=== PATIENT | female | born 1975 | race Caucasian/White ===

== ENCOUNTER 2017-03-10 11:22 | Emergency (ER) | payer OTHER ==
[2017-03-10 11:29] VITALS: TEMP 97.7
[2017-03-10] MEDS ORDERED: NS 1,000 ML IV ONE (12:02)
[2017-03-10] MEDS ORDERED: ONDANSETRON 4 MG/2 ML VIAL IVP ONE ×2 (12:02→12:52)
[2017-03-10 12:16] LABS: PLATELET COUNT 289 10^3/uL (150-400)
[2017-03-10] MEDS ORDERED: HYDROmorphONE/DILAUDID 1 MG/ML INJ IVP ONE (12:52)
[2017-03-10] MEDS ORDERED: KETOROLAC 30 MG/1 ML SDV IVP ONE (14:20)
[2017-03-10] MEDS ORDERED: DEXAMETHASONE 10 MG/ML VIAL IVP ONE (14:20)
[2017-03-10] MEDS ORDERED: METOCLOPRAMIDE 10 MG/2 ML VIAL IVP ONE (14:20)
[2017-03-10] MEDS ORDERED: PROMETHAZINE HCL 25 MG/ML INJ ONE (14:25)
[2017-03-10] MEDS ORDERED: PROMETHAZINE HCL 25 MG/ML INJ IVP ONE (14:27)
--- NOTE | 2017-03-10 15:42 | EDPHY ---
H & P Time Seen by Provider: 03/10/17 11:55 HPI/ROS: CHIEF COMPLAINT: Nausea, headache HISTORY OF PRESENT ILLNESS: 41-year-old female presents to the emergency department with ongoing headache over last 2 weeks. The patient states that she had platelet rich plasma, PRP, done by Dr. Bell in [place] on 2016. The patient was doing well until a few days later when she developed headache. Also was feeling delusional and nauseous. She had no vomiting. No neck pain. She has felt intermittently dizzy as well. She denies chest pain or difficulty breathing. She was concerned about a possible "dural leak". Denies any other reported trauma. No visual changes. No urinary symptoms. She states today she was at work and she felt that the pain in her head became too great and came to the emergency department for evaluation. REVIEW OF SYSTEMS: Constitutional: No fever, no chills. Eyes: No double or blurry vision. ENT: No sore throat. Respiratory: No cough, no shortness of breath. Cardiac: No chest pain. Gastrointestinal: Nausea. No abdominal pain, vomiting or diarrhea. Genitourinary: No dysuria. Musculoskeletal: No neck or back pain. Skin: No rashes. Neurological: headache. 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 Afebrile, nontoxic-appearing. Eyes: Pupils equal and round. Extraocular motions are all intact. ENT: Mouth: Mucous membranes moist. Respiratory: No wheezing, rhonchi, or rales, lungs are clear to auscultation. Cardiovascular: Regular rate and rhythm. Gastrointestinal: Abdomen is soft and nontender, no masses, no rebound or guarding, bowel sounds normal. Neurological: Alert and oriented x 3, cranial nerves II through XII grossly intact Skin: Warm and dry, no rashes. Musculoskeletal: Nontender to palpate along the cervical, thoracic or lumbar spine. Neck is supple. No nuchal rigidity. No pain with range of motion of her neck at all. Extremities: Full range of motion and no peripheral edema. Psychiatric: Patient is oriented X 3, there is no agitation. Constitutional: Initial Vital Signs Temperature (C) 36.5 C 03/10/17 11:26 Heart Rate 77 03/10/17 11:26 Respiratory Rate 16 03/10/17 11:26 Blood Pressure 110/59 L 03/10/17 11:26 O2 Sat (%) 98 03/10/17 11:26 O2 Delivery Mode Room Air Allergies/Adverse Reactions: No Known Allergies Allergy (Verified 03/10/17 11:29) Home Medications: Medication Instructions Recorded oxyCODONE/APAP 5/325 [Percocet 1 tab PO 07/12/14 5/325] Meclizine HCl [Meclizine HCl 25 mg 25 mg PO TID PRN #10 tab 03/10/17 (RX,OTC)] Medical Decision Making - Diagnostics Imaging Results: Imaging Impressions Head CT 03/10/17 12:44 Impression: Normal CT of the head. Specifically, a headache source is not identified. Results called and discussed with CYNDI SHELTON on 03/10/2017 at 13:33 Imaging: Discussed imaging studies w/ call center specialist Radiologist ED Course/Re-evaluation: 41-year-old female presents emergency department with severe headache for last 2 weeks or more after having a PRP procedure on her lower back. Patient was very concerned about possible dural leak. I discussed the case with Dr. Gavin Guaman, secondary supervising physician, who did not directly evaluate the patient but agrees with treatment and plan. I spoke with the on-call anesthesiologist, Dr. Anne, who did not feel that blood patch was indicated given that her procedure was over 2 weeks ago. He felt that if this was related to CSF leak, it should resolve within 10 days. I recommended admission to the hospital for further evaluation as well as evaluation by neurologist, however the patient declined. Her is at bedside and he also declines admission. I did also speak with Dr. Bell, , who did the patient's P RP repair procedure. He felt that it was fine to give the patient migraine cocktail including Decadron, Toradol, Benadryl, Phenergan. He will see her in follow-up. The patient was re-evaluated and is feeling much better. Her headache was actually completely resolved. She was feeling a bit dizzy especially when she would sit up. She was given a prescription for meclizine. I recommended close follow-up with her primary care provider and she should return sooner if she feels worse in any way. Differential Diagnosis: Headache including but not limited to subarachnoid hemorrhage, migraine headache , tension headache and infectious causes such as meningitis, pharyngitis and sinusitis. - Data Points Laboratory Results: Laboratory Results 03/10/17 12:00 03/10/17 12:00 03/10/17 03/10/17 12:00 12:00 WBC 6.99 10^3/uL 10^3/uL (3.80-9.50) RBC 4.26 10^6/uL 10^6/uL (4.18-5.33) Hgb 14.7 g/dL g/dL (12.6-16.3) Hct 42.0 % % (38.0-47.0) MCV 98.6 fL fL (81.5-99.8) MCH 34.5 pg H pg (27.9-34.1) MCHC 35.0 g/dL g/dL (32.4-36.7) RDW 12.3 % % (11.5-15.2) Plt Count 289 10^3/uL 10^3/uL (150-400) MPV 9.9 fL fL (8.7-11.7) Neut % (Auto) 53.2 % % (39.3-74.2) Lymph % (Auto) 33.0 % % (15.0-45.0) [place] % (Auto) 9.4 % % (4.5-13.0) Eos % (Auto) 3.4 % % (0.6-7.6) Baso % (Auto) 0.9 % % (0.3-1.7) Nucleat RBC Rel Count 0.0 % % (0.0-0.2) Absolute Neuts (auto) 3.71 10^3/uL 10^3/uL (1.70-6.50) Absolute Lymphs (auto) 2.31 10^3/uL 10^3/uL (1.00-3.00) Absolute Monos (auto) 0.66 10^3/uL 10^3/uL (0.30-0.80) Absolute Eos (auto) 0.24 10^3/uL 10^3/uL (0.03-0.40) Absolute Basos (auto) 0.06 10^3/uL 10^3/uL (0.02-0.10) Absolute Nucleated RBC 0.00 10^3/uL 10^3/uL (0-0.01) Immature Gran % 0.1 % % (0.0-1.1) Immature Gran # 0.01 10^3/uL 10^3/uL (0.00-0.10) Sodium 140 mEq/L mEq/L (134-144) Potassium 4.3 mEq/L mEq/L (3.5-5.2) Chloride 102 mEq/L mEq/L (97-110) Carbon Dioxide 26 mEq/l mEq/l (22-31) Anion Gap 12 mEq/L mEq/L (8-16) BUN 15 mg/dL mg/dL (7-23) Creatinine 0.8 mg/dL mg/dL (0.6-1.0) Estimated GFR > 60 Glucose 89 mg/dL mg/dL (70-100) Calcium 9.9 mg/dL mg/dL (8.5-10.4) Medications Given: Discontinued Medications Dexamethasone (Decadron Injection) 10 mg IVP EDNOW ONE Stop: 03/10/17 14:21 Last Admin: 03/10/17 14:27 Dose: 10 mg Diphenhydramine HCl (Benadryl Injection) 25 mg IVP EDNOW ONE Stop: 03/10/17 14:21 Last Admin: 03/10/17 14:27 Dose: 25 mg Hydromorphone HCl (Dilaudid) 0.5 mg IVP EDNOW ONE Stop: 03/10/17 12:53 Last Admin: 03/10/17 13:07 Dose: 0.5 mg Sodium Chloride (Ns) 1,000 mls @ 0 mls/hr IV ONCE ONE PRN Reason: Wide Open Stop: 03/10/17 12:03 Last Admin: 03/10/17 12:05 Dose: 1,000 mls Ketorolac Tromethamine (Toradol) 30 mg IVP EDNOW ONE Stop: 03/10/17 14:21 Last Admin: 03/10/17 14:26 Dose: 30 mg Metoclopramide HCl (Reglan Injection) 10 mg IVP EDNOW ONE Stop: 03/10/17 14:21 Last Admin: 03/10/17 14:27 Dose: Not Given Ondansetron HCl (Zofran) 4 mg IVP EDNOW ONE Stop: 03/10/17 12:03 Last Admin: 03/10/17 12:05 Dose: 4 mg Ondansetron HCl (Zofran) 4 mg IVP EDNOW ONE Stop: 03/10/17 12:53 Last Admin: 03/10/17 13:07 Dose: 4 mg Promethazine HCl (Phenergan) 12.5 mg IVP ONCE ONE Stop: 03/10/17 14:28 Last Admin: 03/10/17 14:28 Dose: 12.5 mg Departure - Departure Disposition: Home, Routine, Self-Care Clinical Impression: Headache Qualifiers: Headache type: unspecified Headache chronicity pattern: chronic headache Intractability: not intractable Qualified Code(s): R51 - Headache Condition: Good Instructions: General Headache (ED) Additional Instructions: Follow-up with Dr. Bell as an outpatient as discussed. Return to the emergency department if you developed worsening headache, change in symptoms, or if you feel worse in any way. Meclizine for positional dizziness. Referrals: Jung Motta DO [Medical Doctor] - As per Instructions (Neurologist on-call) Prescriptions: Meclizine HCl [Meclizine HCl 25 mg (RX,OTC)] 25 mg PO TID PRN #10 tab PRN Reason: Dizziness
[2017-03-10 15:52] VITALS: BP 118/67; PULSE 67; RESP 18; O2SAT 97
== END 2017-03-10 15:53 | disposition home or self-care (01) ==
PROC: 3E0337Z Introduction of Electrolytic and Water Balance Substance into Peripheral Vein, Percutaneous Approach (ICD-10-PCS; principal; 2017-03-10)
DX: R51 Headache (principal); E86.9 Volume depletion, unspecified; Z87.891 Personal history of nicotine dependence
CPT/HCPCS: 96374; J1100; J1170; J1200; J1885; J2405; J2550

== ENCOUNTER 2018-05-29 04:18 | Observation (INO) | payer OTHER ==
--- NOTE | 2018-05-29 04:33 | EDPHY ---
H & P Stated Complaint: generalized abd pain x5 days, N/D Time Seen by Provider: 05/29/18 04:32 HPI/ROS: HPI CHIEF COMPLAINT: Abdominal pain HISTORY OF PRESENT ILLNESS: This is a 42-year-old female, presents to the emergency room with abdominal pain. Patient states she has had approximately 5 days of abdominal pain. She describes it as sharp stabbing pain rather diffuse. She has associated nausea but no vomiting. She denies any fever. She denies any chest pain or shortness of breath. Her main pain is round her mid abdomen periumbilical region. Sharp stabbing. Denies being . Denies urinary symptoms. She thought maybe it was gas pains, however she does report some diarrhea no significant constipation. Denies vomiting. Past Medical History: Denies significant medical history Past Surgical History: Appendectomy. Hernia repair. Social History: Denies drugs alcohol tobacco. 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 Family History: Noncontributory ROS REVIEW OF SYSTEMS: 10 Systems were reviewed and negative with the exception of the elements mentioned in the history of present illness. Exam Constitutional triage nursing summary reviewed, vital signs reviewed, awake/ alert. Eyes normal conjunctivae and sclera, EOMI, PERRLA. HENT normal inspection, atraumatic, moist mucus membranes, no epistaxis, neck supple/ no meningismus, no raccoon eyes. Respiratory clear to auscultation bilaterally, normal breath sounds, no respiratory distress, no wheezing. Cardiovascular rate normal, regular rhythm, no murmur, no edema, distal pulses normal. Gastrointestinal soft, non-tender, no rebound, no guarding, normal bowel sounds, no distension, no pulsatile mass. Genitourinary no CVA tenderness. Musculoskeletal no midline vertebral tenderness, full range of motion, no calf swelling, no tenderness of extremities, no meningismus, good pulses, neurovascularly intact. Skin pink, warm, & dry, no rash, skin atraumatic. Neurologic awake, alert and oriented x 3, AAOx3, moves all 4 extremities equally, motor intact, sensory intact, CN II-XII intact, normal cerebellar, normal vision, normal speech. Psychiatric normal mood/affect. Heme/Lymph/Immune no lymphadenopathy. Differential Diagnosis: Differential diagnosis includes but is not limited to and in no particular order: Bowel obstruction, gallbladder disease, diverticulitis, colitis, enteritis, perforated viscus, gastritis, GERD, esophagitis, urinary tract infection, pyelonephritis, kidney stones Medical Decision Making: Plan for this patient IV establishment IV fluid bolus , IV Dilaudid 0.5 mg for pain control IV Zofran 4 mg for nausea, basic labs, CT scan abdomen pelvis with IV contrast. Re-evaluation: CT scan abdomen pelvis with IV contrast: Report faxed me by direct Radiology: 6:15 a.m. Mildly prominent common bile duct possible low-density filling defect correlate with serum bilirubin Small right adnexal cyst Likely an ovarian follicle small free fluid Scattered fluid-filled small bowel loops are nonspecific, could represent mild enteritis High density fluid versus less likely soft tissue or posterior the right kidney small amount of hemorrhage is difficult to exclude Launch treated anterior pelvic fat findings nonspecific though clinical correlation for PID is suggestion. 7:[address] results reviewed. Clinically on exam she has had nausea diffuse abdominal pain and bloating, and diarrhea. This most likely make sense that she has enteritis. She does not have any flank pain or back pain. She does not have focal right upper quadrant abdominal pain and her biliRubin is normal. Denies vaginal discharge, denies any pelvic pain or abnormal vaginal discharge. PID unlikely. Patient monogamous relationship. 0715AM: Patient re-evaluated this time resting comfortably. Abdomen is soft. However still complains of rather severe pain 8/10. Diffuse crampy. With a long discussion about her CT scan results. Plan will be for admission today to the hospitalist service. Most likely has enteritis. Labs reviewed and CT reviewed. Will ask the hospitalist service to admit for pain control IV fluids and observation 2nd L fluid ordered. 2nd dose of Dilaudid ordered. Patient prefer hospitalization due to pain. Spoke with Dr. Rojas, Agrees to admit to hospital. Source: Patient - Personal History LMP (Females 10-55): 8-14 Days Ago Current Tetanus/Diphtheria Vaccine: Unsure - Medical/Surgical History Hx Asthma: No Hx Chronic Respiratory Disease: No Hx Diabetes: No Hx Cardiac Disease: No Hx Renal Disease: No Hx Cirrhosis: No Hx Alcoholism: No Hx HIV/AIDS: No Hx Splenectomy or Spleen Trauma: No Other PMH: shingles - Social History Smoking Status: Former smoker Constitutional: Initial Vital Signs Temperature (C) 36.9 C 05/29/18 04:25 Heart Rate 91 05/29/18 04:25 Respiratory Rate 18 05/29/18 04:25 Blood Pressure 138/80 H 05/29/18 04:25 O2 Sat (%) 98 05/29/18 04:25 O2 Delivery Mode Room Air Allergies/Adverse Reactions: oseltamivir [From Tamiflu] Allergy (Verified 05/29/18 08:32) Hallucinations Home Medications: Medication Instructions Recorded Acetaminophen [Tylenol 325mg (*)] 325 mg PO DAILY PRN 05/29/18 Herbals/Supplements -Info Only 1 ea PO DAILY 05/29/18 [place]-3 Fatty Acids [Fish Oil 1000 1,000 mg PO DAILY 05/29/18 mg (*)] Vitamin B Complex [Vitamin B 1 each PO DAILY 05/29/18 Complex (OTC)] Medical Decision Making - Diagnostics Imaging Results: Imaging Impressions Abdomen CT 05/29/18 04:36 Impression: Constipation and possible mild enterocolitis. Final results are concordant with initial interpretation. Preliminary report was communicated to the referring provider at 0615. DR1. - Data Points Laboratory Results: Laboratory Results 05/29/18 04:50 05/29/18 04:50 05/29/18 05/29/18 05/29/18 05:52 05:35 04:50 WBC RBC Hgb Hct MCV MCH MCHC RDW Plt Count MPV Neut % (Auto) Lymph % (Auto) [place] % (Auto) Eos % (Auto) Baso % (Auto) Nucleat RBC Rel Count Absolute Neuts (auto) Absolute Lymphs (auto) Absolute Monos (auto) Absolute Eos (auto) Absolute Basos (auto) Absolute Nucleated RBC Immature Gran % Immature Gran # VBG Lactic Acid 0.6 mmol/L L mmol/L (0.7-2.1) Sodium Potassium Chloride Carbon Dioxide Anion Gap BUN Creatinine Estimated GFR Glucose Calcium Total Bilirubin Conjugated Bilirubin Unconjugated Bilirubin AST ALT Alkaline Phosphatase Total Protein Albumin Lipase Beta HCG, Qual NEGATIVE Urine Color PALE YELLOW Urine Appearance CLEAR Urine pH 9.0 H (5.0-7.5) Ur Specific [place] 1.005 (1.002-1.030) Urine Protein NEGATIVE (NEGATIVE) Urine Ketones NEGATIVE (NEGATIVE) Urine Blood NEGATIVE (NEGATIVE) Urine Nitrate NEGATIVE (NEGATIVE) Urine Bilirubin NEGATIVE (NEGATIVE) Urine Urobilinogen NEGATIVE EU EU (0.2-1.0) Ur Leukocyte Esterase NEGATIVE (NEGATIVE) Urine Glucose NEGATIVE (NEGATIVE) 05/29/18 05/29/18 04:50 04:50 WBC 5.88 10^3/uL 10^3/uL (3.80-9.50) RBC 4.35 10^6/uL 10^6/uL (4.18-5.33) Hgb 14.4 g/dL g/dL (12.6-16.3) Hct 42.1 % % (38.0-47.0) MCV 96.8 fL fL (81.5-99.8) MCH 33.1 pg pg (27.9-34.1) MCHC 34.2 g/dL g/dL (32.4-36.7) RDW 12.4 % % (11.5-15.2) Plt Count 261 10^3/uL 10^3/uL (150-400) MPV 9.7 fL fL (8.7-11.7) Neut % (Auto) 41.9 % % (39.3-74.2) Lymph % (Auto) 41.2 % % (15.0-45.0) [place] % (Auto) 12.1 % % (4.5-13.0) Eos % (Auto) 3.4 % % (0.6-7.6) Baso % (Auto) 1.2 % % (0.3-1.7) Nucleat RBC Rel Count 0.0 % % (0.0-0.2) Absolute Neuts (auto) 2.47 10^3/uL 10^3/uL (1.70-6.50) Absolute Lymphs (auto) 2.42 10^3/uL 10^3/uL (1.00-3.00) Absolute Monos (auto) 0.71 10^3/uL 10^3/uL (0.30-0.80) Absolute Eos (auto) 0.20 10^3/uL 10^3/uL (0.03-0.40) Absolute Basos (auto) 0.07 10^3/uL 10^3/uL (0.02-0.10) Absolute Nucleated RBC 0.00 10^3/uL 10^3/uL (0-0.01) Immature Gran % 0.2 % % (0.0-1.1) Immature Gran # 0.01 10^3/uL 10^3/uL (0.00-0.10) VBG Lactic Acid Sodium 136 mEq/L mEq/L (135-145) Potassium 4.3 mEq/L mEq/L (3.5-5.2) Chloride 102 mEq/L mEq/L (97-110) Carbon Dioxide 25 mEq/l mEq/l (22-31) Anion Gap 9 mEq/L mEq/L (6-14) BUN 13 mg/dL mg/dL (7-23) Creatinine 0.8 mg/dL mg/dL (0.6-1.0) Estimated GFR > 60 Glucose 90 mg/dL mg/dL (70-100) Calcium 9.7 mg/dL mg/dL (8.5-10.4) Total Bilirubin 0.6 mg/dL mg/dL (0.1-1.4) Conjugated Bilirubin 0.3 mg/dL mg/dL (0.0-0.5) Unconjugated Bilirubin 0.3 mg/dL mg/dL (0.0-1.1) AST 27 IU/L IU/L (14-46) ALT 25 IU/L IU/L (9-52) Alkaline Phosphatase 35 IU/L L IU/L (38-126) Total Protein 6.5 g/dL g/dL (6.3-8.2) Albumin 4.2 g/dL g/dL (3.5-5.0) Lipase 108 IU/L IU/L (23-300) Beta HCG, Qual Urine Color Urine Appearance Urine pH Ur Specific [place] Urine Protein Urine Ketones Urine Blood Urine Nitrate Urine Bilirubin Urine Urobilinogen Ur Leukocyte Esterase Urine Glucose Medications Given: Discontinued Medications Hydromorphone HCl (Dilaudid) 0.5 mg IVP EDNOW ONE Stop: 05/29/18 04:37 Last Admin: 05/29/18 04:49 Dose: 0.5 mg Hydromorphone HCl (Dilaudid) 0.5 mg IVP EDNOW ONE Stop: 05/29/18 07:15 Last Admin: 05/29/18 07:37 Dose: 0.5 mg Sodium Chloride (Ns) 1,000 mls @ 0 mls/hr IV EDNOW ONE; Wide Open PRN Reason: Protocol Stop: 05/29/18 04:37 Last Admin: 05/29/18 04:47 Dose: 1,000 mls Sodium Chloride (Ns) 1,000 mls @ 0 mls/hr IV ONCE ONE PRN Reason: Wide Open Stop: 05/29/18 07:14 Last Admin: 05/29/18 07:36 Dose: 1,000 mls Ondansetron HCl (Zofran) 4 mg IVP EDNOW ONE Stop: 05/29/18 04:37 Last Admin: 05/29/18 04:48 Dose: 4 mg Departure - Departure Disposition: [facility] Clinical Impression: Abdominal pain, Enteritis Condition: Fair
[2018-05-29] MEDS ORDERED: NS 1,000 ML IV ONE ×2 (04:36→07:13)
[2018-05-29] MEDS ORDERED: ONDANSETRON 4 MG/2 ML VIAL IVP ONE (04:36)
[2018-05-29] MEDS ORDERED: HYDROmorphONE/DILAUDID 2 MG/ML INJ IVP ONE ×2 (04:36→07:14)
[2018-05-29 05:03] LABS: PLATELET COUNT 261 10^3/uL (150-400)
[2018-05-29] MEDS ORDERED: IOPAMIDOL (ISOVUE-300) 100 ML BTL ONE (05:20)
[2018-05-29] MEDS ORDERED: ONDANSETRON DISINTEGRATING 4 MG TAB PO PRN (08:30)
[2018-05-29] MEDS ORDERED: ONDANSETRON 4 MG/2 ML VIAL IVP PRN (08:30)
[2018-05-29] MEDS ORDERED: HYDROmorphONE/DILAUDID 1 MG/ML INJ IVP PRN (08:30)
[2018-05-29] MEDS ORDERED: NS 1,000 ML IV SCH (08:30)
[2018-05-29] MEDS ORDERED: LORazepam 2 MG/ML INJ IVP PRN (08:30)
[2018-05-29] MEDS ORDERED: ACETAMINOPHEN 325 MG TAB PO PRN (08:30)
[2018-05-29] MEDS ORDERED: MAGNESIUM HYDROXIDE 30 ML UDCUP PO PRN (08:32)
[2018-05-29] MEDS ORDERED: POLYETHYLENE GLYCOL 3350 17 GM PKT PO PRN (08:32)
--- NOTE | 2018-05-29 08:33 | PDGENHP ---
History and Physical - Chief Complaint abdominal pain - History of Present Illness Healthy 42yo F here with 4-5 days of abdominal pain. Most severe in right and left lower quadrants. Some associated nausea but no emesis. Had a few loose stools yesterday that were non-bloody. No fevers or chills. She reports that her abdomen feels very distended. No recent travel or antibiotics or odd food ingestions. No sick contacts. No rashes. Has tried aleve for the last 4 days without relief. In the ED, labs were unremarkable. CT of her abdomen shows constipation, possible mild enterocolitis, and a right ovarian cyst measuring 1.6cm with associated trace free fluid in the pelvis. Her pain was not adequately controlled to go home and she is being admitted for management of this. History Information - Allergies/Home Medication List Allergies/Adverse Reactions: oseltamivir [From Tamiflu] Allergy (Verified 05/29/18 08:32) Hallucinations Home Medications: Acetaminophen [Tylenol 325mg (*)] 325 mg PO DAILY PRN 05/29/18 [Last Taken Unknown] Herbals/Supplements -Info Only 1 ea PO DAILY 05/29/18 [Last Taken Unknown] [place]-3 Fatty Acids [Fish Oil 1000 mg (*)] 1,000 mg PO DAILY 05/29/18 [Last Taken Unknown] Vitamin B Complex [Vitamin B Complex (OTC)] 1 each PO DAILY 05/29/18 [Last Taken Unknown] I have personally reviewed and updated: family history, medical history, social history, surgical history - Past Medical History no pertinent PMH - Surgical History Additional surgical history: appendectomy, abdominal hernia repair - Family History Positive for: non-pertinent - Social History Smoking Status: Former smoker Alcohol Use: Rarely Drug Use: None Additional social history: Works as [employer]. Has children. Review of Systems Review of Systems: ROS: 10pt was reviewed & negative except for what was stated in HPI & below Physical Exam Physical Exam: Temp Pulse Resp BP Pulse Ox 37 C 79 18 141/76 H 98 05/29/18 07:42 05/29/18 07:42 05/29/18 07:42 05/29/18 07:42 05/29/18 07:42 Constitutional: no apparent distress, appears nourished, not in pain Eyes: PERRL, anicteric sclera, EOMI Ears, Nose, Mouth, Throat: moist mucous membranes, hearing normal, ears appear normal, no oral mucosal ulcers Cardiovascular: regular rate and rhythym, no murmur, rub, or gallop, No edema Respiratory: no respiratory distress, no rales or rhonchi, clear to auscultation Gastrointestinal: normoactive bowel sounds, tenderness (R>LLQ), No hepatosplenomegally, No guarding, No rebound, No distension Genitourinary: no bladder fullness, no bladder tenderness Skin: warm, normal color, no rashes or abrasions, no fluctuance, no induration, No mottled Musculoskeletal: full muscle strength, no muscle tenderness, normal joint ROM, no joint effusions Neurologic: AAOx3 Psychiatric: interacting appropriately, not anxious, not encephalopathic, thought process linear Lab Data & Imaging Review 05/29/18 04:50 05/29/18 04:50 WBC 5.88 10^3/uL (3.80-9.50) 05/29/18 04:50 RBC 4.35 10^6/uL (4.18-5.33) 05/29/18 04:50 Hgb 14.4 g/dL (12.6-16.3) 05/29/18 04:50 Hct 42.1 % (38.0-47.0) 05/29/18 04:50 MCV 96.8 fL (81.5-99.8) 05/29/18 04:50 MCH 33.1 pg (27.9-34.1) 05/29/18 04:50 MCHC 34.2 g/dL (32.4-36.7) 05/29/18 04:50 RDW 12.4 % (11.5-15.2) 05/29/18 04:50 Plt Count 261 10^3/uL (150-400) 05/29/18 04:50 MPV 9.7 fL (8.7-11.7) 05/29/18 04:50 Neut % (Auto) 41.9 % (39.3-74.2) 05/29/18 04:50 Lymph % (Auto) 41.2 % (15.0-45.0) 05/29/18 04:50 [place] % (Auto) 12.1 % (4.5-13.0) 05/29/18 04:50 Eos % (Auto) 3.4 % (0.6-7.6) 05/29/18 04:50 Baso % (Auto) 1.2 % (0.3-1.7) 05/29/18 04:50 Nucleat RBC Rel Count 0.0 % (0.0-0.2) 05/29/18 04:50 Absolute Neuts (auto) 2.47 10^3/uL (1.70-6.50) 05/29/18 04:50 Absolute Lymphs (auto) 2.42 10^3/uL (1.00-3.00) 05/29/18 04:50 Absolute Monos (auto) 0.71 10^3/uL (0.30-0.80) 05/29/18 04:50 Absolute Eos (auto) 0.20 10^3/uL (0.03-0.40) 05/29/18 04:50 Absolute Basos (auto) 0.07 10^3/uL (0.02-0.10) 05/29/18 04:50 Absolute Nucleated RBC 0.00 10^3/uL (0-0.01) 05/29/18 04:50 Immature Gran % 0.2 % (0.0-1.1) 05/29/18 04:50 Immature Gran # 0.01 10^3/uL (0.00-0.10) 05/29/18 04:50 VBG Lactic Acid 0.6 mmol/L (0.7-2.1) L 05/29/18 05:52 Sodium 136 mEq/L (135-145) 05/29/18 04:50 Potassium 4.3 mEq/L (3.5-5.2) 05/29/18 04:50 Chloride 102 mEq/L (97-110) 05/29/18 04:50 Carbon Dioxide 25 mEq/l (22-31) 05/29/18 04:50 Anion Gap 9 mEq/L (6-14) 05/29/18 04:50 BUN 13 mg/dL (7-23) 05/29/18 04:50 Creatinine 0.8 mg/dL (0.6-1.0) 05/29/18 04:50 Estimated GFR > 60 05/29/18 04:50 Glucose 90 mg/dL (70-100) 05/29/18 04:50 Calcium 9.7 mg/dL (8.5-10.4) 05/29/18 04:50 Total Bilirubin 0.6 mg/dL (0.1-1.4) 05/29/18 04:50 Conjugated Bilirubin 0.3 mg/dL (0.0-0.5) 05/29/18 04:50 Unconjugated Bilirubin 0.3 mg/dL (0.0-1.1) 05/29/18 04:50 AST 27 IU/L (14-46) 05/29/18 04:50 ALT 25 IU/L (9-52) 05/29/18 04:50 Alkaline Phosphatase 35 IU/L (38-126) L 05/29/18 04:50 Total Protein 6.5 g/dL (6.3-8.2) 05/29/18 04:50 Albumin 4.2 g/dL (3.5-5.0) 05/29/18 04:50 Lipase 108 IU/L (23-300) 05/29/18 04:50 Beta HCG, Qual NEGATIVE 05/29/18 04:50 Urine Color PALE YELLOW 05/29/18 05:35 Urine Appearance CLEAR 05/29/18 05:35 Urine pH 9.0 (5.0-7.5) H 05/29/18 05:35 Ur Specific [place] 1.005 (1.002-1.030) 05/29/18 05:35 Urine Protein NEGATIVE (NEGATIVE) 05/29/18 05:35 Urine Ketones NEGATIVE (NEGATIVE) 05/29/18 05:35 Urine Blood NEGATIVE (NEGATIVE) 05/29/18 05:35 Urine Nitrate NEGATIVE (NEGATIVE) 05/29/18 05:35 Urine Bilirubin NEGATIVE (NEGATIVE) 05/29/18 05:35 Urine Urobilinogen NEGATIVE EU (0.2-1.0) 05/29/18 05:35 Ur Leukocyte Esterase NEGATIVE (NEGATIVE) 05/29/18 05:35 Urine Glucose NEGATIVE (NEGATIVE) 05/29/18 05:35 Interpretation: CT abd/pelvis w/IV contrast: See HPI Assessment & Plan Assessment: Healthy 42yo F here with 4-5 days of abdominal pain. Plan: #Acute abdominal pain: Labs are pristine. Exam is benign. CT shows some constipation, mild enterocolitis, and R ovarian cyst which are likely all contributing. - Trial toradol - Bowel regimen - Oxycodone, ativan prn - Anti-emetics - IVF VTE ppx: SCDs Diet: regular as tolerates Dispo: Admit under observation, possibly dc later today if symptoms adequately controlled and tolerating PO
[2018-05-29] MEDS ORDERED: SENNOSIDES/DOCUSATE SODIUM TAB PO SCH (09:00)
[2018-05-29] MEDS: oxyCODONE IR 5 MG TAB PO PRN ×2 (10:24→13:34)
[2018-05-29 12:13] VITALS: BP 107/63
[2018-05-29] MEDS ORDERED: KETOROLAC 15 MG/1 ML SDV IVP ONE (13:52)
[2018-05-29] MEDS ORDERED: SIMETHICONE 80 MG TAB CHEW PO PRN (14:46)
[2018-05-29] MEDS ORDERED: MAG HYDROX/AL HYDROX/SIMETH 30 ML UDCUP PO PRN (14:46)
--- NOTE | 2018-05-29 16:42 | PDDCSUM ---
Discharge Summary Discharge Summary: Date of Admission: 05/29/2018 Date of Discharge: 05/29/2018 Studies: CT abd/pelvis Discharge Diagnoses: 1. Acute abdominal pain 2. Mild enterocolitis 3. Constipation 4. Right ovarian cyst Brief Hospital Course: Healthy 42yo F presented with 4-5 days of abdominal pain. No n/v/d. Exam benign. Labs unremarkable. CT showed some constipation, mild enterocolitis, and R ovarian cyst which are likely all contributing. She improved with IV fluids, IV toradol and a bowel regimen. She was tolerating PO at time of discharge. I counseled her on pain control at home. Medications: Please refer to EMR for complete list. I wrote a prescription for oxycodone 5mg q6h PRN #5 with 0 refills. Follow Up Plan: Establish with PCP. Physical Exam: Vitals reviewed, afebrile. Alert and oriented, rrr, lungs clear, abdomen soft and nt with normoactive bowel sounds, no rashes, no edema.
== END 2018-05-29 17:00 | disposition home or self-care (01) ==
LOC: F1N 08:25
PROVIDERS: ADMIT Student in an Organized Health Care Education/Training Program; ATTEND Internal Medicine
DX: R10.9 Unspecified abdominal pain (principal); K52.9 Noninfective gastroenteritis and colitis, unspecified; E86.9 Volume depletion, unspecified; K59.00 Constipation, unspecified; N83.201 Unspecified ovarian cyst, right side; Z87.891 Personal history of nicotine dependence
CPT/HCPCS: 74177; 96361; 96374; 96375; 96376; 99285; G0378; J1170; J1885; J2405; Q9967

== ENCOUNTER → 2018-07-01 | Outpatient (CLI) | payer OTHER | LOC: BMCIMAGING 07:59 | PROVIDERS: ATTEND Physician Assistant | DX: N83.01 Follicular cyst of right ovary (principal); R10.84 Generalized abdominal pain ==